=== PATIENT | female | born 1965 | race Hispanic/Latino ===

== ENCOUNTER 2017-01-16 13:02 | Emergency (ER) | payer BC ==
[2017-01-16 13:10] VITALS: BMI 30.9
[2017-01-16 13:19] VITALS: TEMP 98; O2SAT 97
[2017-01-16] MEDS ORDERED: Lidocaine 1% Inj (20ml) IJ STA (13:36)
[2017-01-16] MEDS ORDERED: TDAP Vaccine 0.5 mL Syr IM ONE (13:37)
[2017-01-16 14:33] VITALS: BP 102/58; PULSE 65; RESP 18
--- NOTE | 2017-01-16 15:02 | ED PDOC ---
Arrival/HPI - General Historian: Patient <Alejandro Loyachato - Last Filed: 01/16/17 17:06> <Cecil Nice DO - Last Filed: 01/16/17 22:20> - General Chief Complaint: Abnormal Skin Integrity Time Seen by Provider: 01/16/17 13:20 - History of Present Illness Narrative History of Present Illness (Text): 01/16/17 13:30 51 F with a PMHx pertinent for a CVA on Coumadin, presents s/p a laceration on her R hand in the webspace between her fourth and fifth digits. Patient states that she was washing the dishes when a glass broke and caught her hand. Patient denies falling or injury anywhere else. Patient further denies any f/ch /n/v/d/cp/sob. Patient states that she is not up to date with her tetanus immunization, and is amenable to getting it today. No further complaints. (Alejandro Loya) Past Medical History - Provider Review Nursing Documentation Reviewed: Yes - Infectious Disease Hx of Infectious Diseases: None - Cardiac Hx Cardiac Disorders: No Hx Pacemaker: No - Pulmonary Hx Respiratory Disorders: Yes Hx Asthma: Yes - Neurological Hx Neurological Disorder: Yes HX Cerebrovascular Accident: Yes (L sided weakness) Hx Multiple Sclerosis: Yes Hx Paralysis: No Hx Seizures: Yes - HEENT Hx HEENT Disorder: No - Renal Hx Renal Disorder: No - Endocrine/Metabolic Hx Endocrine Disorders: Yes Hx Systemic Lupus Erythematosus: Yes - Hematological/Oncological Hx Blood Transfusions: No - Integumentary Hx Dermatological Disorder: No - Musculoskeletal/Rheumatological Hx Musculoskeletal Disorders: No - Gastrointestinal Hx Gastrointestinal Disorders: No - Genitourinary/Gynecological Hx Genitourinary Disorders: No - Psychiatric Hx Emotional Abuse: No Hx Physical Abuse: No Hx Substance Use: Yes (MARIJUANA;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) - Surgical History Other/Comment: vein removed from leg - Anesthesia Hx Anesthesia: Yes Hx Anesthesia Reactions: No Hx Malignant Hyperthermia: No - Suicidal Assessment Feels Threatened In Home Enviroment: No <VincenzoAlejandro - Last Filed: 01/16/17 17:06> Family/Social History - Physician Review Nursing Documentation Reviewed: Yes Family/Social History: Unknown Family HX Smoking Status: Heavy Smoker > 10 Cigarettes Daily Hx Alcohol Use: Yes (WEEKENDS VODKA;NONE NOW) Hx Substance Use: Yes (MARIJUANA;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) <Alejandro Loya - Last Filed: 01/16/17 17:06> Allergies/Home Meds <Alejandro Loya - Last Filed: 01/16/17 17:06> <Cecil Nice DO - Last Filed: 01/16/17 22:20> Allergies/Adverse Reactions: Allergies No Known Allergies Allergy (Verified 01/16/17 13:09) Home Medications: Home Meds Medication Instructions Recorded Confirmed Albuterol HFA [Ventolin HFA 90 1 puff IH QID 06/17/15 01/16/17 mcg/actuation (8 g)] Warfarin [Coumadin] 10 mg PO DAILY 06/17/15 01/16/17 Atorvastatin [Lipitor] 80 mg PO DIN 01/16/17 01/16/17 Clopidogrel [Plavix] 75 mg PO DAILY 01/16/17 01/16/17 Escitalopram [Lexapro] 10 mg PO HS 01/16/17 01/16/17 Ezetimibe [Ezetimibe] 10 mg PO DAILY 01/16/17 01/16/17 Magnesium Oxide/Magnesium 1 tab PO DAILY 01/16/17 01/16/17 [Magnesium 300 mg Capsule] Metoprolol Tartrate [Lopressor] 50 mg PO DAILY 01/16/17 01/16/17 Risedronate Sodium [Risedronate 35 mg PO DAILY 01/16/17 01/16/[address]] levETIRAcetam [Keppra] 500 mg PO BID 01/16/17 01/16/17 Review of Systems - Physician Review All systems were reviewed & negative as marked: Yes - Review of Systems Constitutional: Normal. absent: Fatigue, Weight Change, Fevers Eyes: Normal. absent: Vision Changes, Photophobia, Eye Pain ENT: Normal, Voice Changes. absent: Rhinorrhea, Epistaxis Respiratory: Normal. absent: SOB, Cough Cardiovascular: Normal. absent: Chest Pain, Edema Gastrointestinal: Normal. absent: Abdominal Pain, Diarrhea, Nausea, Vomiting Genitourinary Female: Normal. absent: Dysuria, Frequency Musculoskeletal: Normal. absent: Arthralgias, Back Pain, Neck Pain Skin: Laceration (Pt complains of R hand laceration in fourth and fifth digit ) Neurological: Normal. absent: Headache, Dizziness Endocrine: Normal. absent: Polyuria, Polydipsia Hemo/Lymphatic: Normal. absent: Adenopathy, Easy Bleeding Psychiatric: Normal. absent: Anxiety, Depression, Suicidal Ideation <Alejandro Loya - Last Filed: 01/16/17 17:06> Physical Exam Vital Signs Reviewed: Yes Temperature: Afebrile Blood Pressure: Normal Pulse: Regular Respiratory Rate: Normal Appearance: Positive for: Well-Appearing, Non-Toxic, Comfortable Pain Distress: None Mental Status: Positive for: Alert and Oriented X 3 - Systems Exam Head: Present: Atraumatic, Normocephalic. No: Tenderness, Contusion Pupils: Present: PERRL. No: Sluggish, Pinpoint Extroacular Muscles: Present: EOMI. No: Gaze Palsy, Entrapment Conjunctiva: Present: Normal. No: Injected, Icteric Ears: Present: Normal, NORMAL TM. No: Erythema, TM Bulging Mouth: Present: Moist Mucous Membranes, Normal Lips, Normal Tounge, Normal Teeth. No: Dry, Drooling Neck: Present: Normal Range of Motion. No: MIDLINE TENDERNESS, Paraspinal Tenderness Respiratory/Chest: Present: Clear to Auscultation, Good Air Exchange, Respiratory Distress, Accessory Muscle Use. No: Wheezes, Rales, Rhonchi Cardiovascular: Present: Regular Rate and Rhythm, Normal S1, S2. No: Murmurs, Rub, Gallop Abdomen: Present: Normal Bowel Sounds. No: Tenderness, Distention, Peritoneal Signs, Rebound, Guarding Upper Extremity: Present: Normal ROM. No: Normal Inspection (See SKIN Exam), Cyanosis, Edema Lower Extremity: Present: Normal Inspection, NORMAL PULSES, Normal ROM. No: CALF TENDERNESS, Cyanosis Neurological: Present: GCS=15, CN II-XII Intact, Speech Normal, Motor Func Grossly Intact, Normal Sensory Function, Normal Cerebellar Funct, Norm Deep Tendon Reflexes, Gait Normal Skin: Present: Warm, Normal Color, Laceration (R hand has a 1.25 CM laceration in the webspace between the 4th and 5th digits. Does not include muscular level ). No: Dry, Diaphoretic Psychiatric: Present: Alert, Oriented x 3, Normal Insight, Normal Concentration. No: Suicidal Ideation, Homicidal Ideation <Alejandro Loya - Last Filed: 01/16/17 17:06> Medical Decision Making <Alejandro Loya - Last Filed: 01/16/17 17:06> <Cecil Nice DO - Last Filed: 01/16/17 22:20> ED Course and Treatment: Assessed 01/16/17 13:50 Impression: 51 F PMHx pertinent for CVA on coumadin with laceration on R hand. Vertical laceration is in the webspace between the fourth and fifth digits, measures 1.25 cm in length. Curves into a stellate laceration. Plan: - Tdap administered - Irrigation with 250 mL sterile water and 20 mL syringe for pressure - Wound cleansed and the depth of the wound examined - no foreign bodies identified - 6 mL Lidocaine 1% without epi used - 5 external 5-O non-resorbable sutures used - Gauze applied at site of wound; fourth and fifth digits wrapped together - Advised patient not to smoke cigarettes for the duration of healing - Patient advised to return in 7 days for suture removal (Alejandro Loya) - Medication Orders Current Medication Orders: Discontinued Medications Lidocaine HCl (Lidocaine 1% (20ml)) 50 ml IJ STAT STA Stop: 01/16/17 13:37 Tetanus/Reduced Diphtheria/Acell Pertussis (Boostrix Vaccine Inj) 0.5 ml IM .ONCE ONE Stop: 01/16/17 13:38 Last Admin: 01/16/17 13:43 Dose: 0.5 ml - PA / [employer] / Resident Statement DANTE has reviewed & agrees with the documentation as recorded. DANTE has examined the patient and agrees with the treatment plan. <Cecil Nice DO - Last Filed: 01/16/17 22:20> Disposition/Present on Arrival - Present on Arrival Any Indicators Present on Arrival: No History of DVT/PE: No History of Uncontrolled Diabetes: No Urinary Catheter: No History of Decub. Ulcer: No History Surgical Site Infection Following: None - Disposition Have Diagnosis and Disposition been Completed?: Yes Disposition Time: 14:45 Patient Plan: Discharge <Alejandro Loya - Last Filed: 01/16/17 17:06> <Cecil Nice DO - Last Filed: 01/16/17 22:20> - Disposition Diagnosis: Hand laceration Disposition: HOME/ ROUTINE Condition: IMPROVED Additional Instructions: Ms. Santos, thank you for letting us take care of you today. Your providers were Dr. Nice and Dr. Loya. You were treated for a laceration on your right hand between your fourth and fifth digits. The emergency medical care you received today was directed at your acute symptoms. If you were prescribed any medication, please fill it and take as directed. It may take several days for your symptoms to resolve. Return to the Emergency Department if your symptoms worsen, do not improve, or if you have any other problems. Please contact your doctor or call one of the physicians/clinics you have been referred to that are listed on the Patient Visit Information form that is included in your discharge packet. Bring any paperwork you were given at discharge with you along with any medications you are taking to your follow up visit. Our treatment cannot replace ongoing medical care by a primary care provider (PCP) outside of the emergency department. Thank you for allowing the [facility] team to be part of your care today. If you had an X-Ray or CT scan: A Radiologist will review the ED reading if any change in treatment is needed we will contact you. If you had a blood, urine, or wound culture: It will take several days for the results, if any change in treatment is needed we will contact you. If you had an STI test: It will take 48 hours for the results. Please call after 1 week if you have not heard back. Referrals: Sander Buchanan MD [Primary Care Provider] - Follow up with primary Forms: [employer] (Persian)
== END 2017-01-16 14:55 | disposition home or self-care (01) ==
LOC: ED 13:02
DX: S61.411A Laceration without foreign body of right hand, initial encounter (principal); W25.XXXA Contact with sharp glass, initial encounter; Z23 Encounter for immunization